=== PATIENT | female | born 1965 | race African-American/Black ===

== ENCOUNTER → 2017-04-11 | Outpatient (CLI) | payer BC ==
[~2017-04-11] MED LIST: ACETAMINOPHEN PO
--- NOTE | ~2017-04-11 | TH ---
Unit #: [id number] #: [id number] Patient: VERENICE FORD [id number] [address] [address] [id number] O MR#: [id number] NAME: VERENICE FORD : 1965 SEX: F STUDY DATE/TIME: 04/11/2017 UNIT: [facility] ROOM: STUDY DESCRIPTION: Attending Physician: Audra Kaye M.D. Referring Physician: Audra Kaye M.D. Primary Care Physician: Tolu Banks Jr., A.P.R.N. CARDIOLOGY REPORT EXAM Nuclear study. DESCRIPTION OF PROCEDURE This 51-year-old patient was exercised on a treadmill. At the peak of exercise, patient was injected with 33.1 mCi of technetium-99m Cardiolite and images were obtained according to a standard SPECT protocol. For rest images, 11.2 mCi of Cardiolite was injected. Images were reviewed in both phases. FINDINGS Overall study quality is excellent. LV cavity size is normal in both images. There is no lung activity. RV is normal. Rotating raw data showed no significant artifact, soft tissue attenuation, or GI uptake. Review of the SPECT images showed normal homogeneous radiotracer concentration throughout the myocardium in both the stress and rest images. Gated images showed normal LV wall thickening and wall motion with an estimated LV ejection fraction of 73%. IMPRESSION 1. Myocardial perfusion imaging is normal. 2. No evidence of ischemia or infarct. 3. Normal left ventricle dimensions. 4. Normal systolic left ventricular function with an estimated left ventricular ejection fraction of 73%. 1. Dictated by... Chris Deal/ramón TD: 04/11/2017 14:46 JOB #: [id number] Unit #: [id number] #: [id number] Patient: VERENICE FORD CARDIOLOGY REPORT Page 1 of 1 X Jose Ramos MD CARDIOLOGY REPORT
--- NOTE | ~2017-04-11 | ST ---
Unit #: [id number] #: [id number] Patient: VERENICE FORD [id number] [address] [address] [id number] O MR#: [id number] NAME: VERENICE FORD : 1965 SEX: F STUDY DATE/TIME: 04/11/2017 UNIT: [facility] ROOM: STUDY DESCRIPTION: Attending Physician: Audra Kaye M.D. Referring Physician: Audra Kaye M.D. Primary Care Physician: Tolu Banks Jr., A.P.R.N. CARDIOLOGY REPORT EXAM Exercise Cardiolite stress test. FINDINGS Baseline EKG: Normal sinus rhythm with ventricular rate 86 beats per minute, Q wave noted in V1, left atrial abnormality, poor R-wave progression, nonspecific ST-T wave abnormalities in inferolateral leads. PROCEDURE Patient walked on the treadmill for five minutes utilizing Prieto protocol, achieving a workload of 4.7 METs. Next, 87% of maximum target heart rate achieved at 146 beats per minute with a maximum blood pressure response of 182/100 mmHg. Next, EKG during the test showed 0.[address] depression in inferolateral leads, nonspecific ST-T wave abnormalities, flattening of ST segment in inferolateral leads. The patient had no complaints of chest pain, palpitations, or dizziness. Had increased shortness of breath and fatigueness which resolved in recovery phase. IMPRESSION 1. Functional class III with a workload of 4.7 METs. 2. Patient walked for five minutes achieving 87% of maximum target heart rate 146 beats per minute with a hypertensive blood pressure response of 182/100 mmHg. 3. It is noted at the end of recovery phase patient's blood pressure decreased down to 136/83 mmHg. 4. Patient had no complaints of chest pain, palpitations, or dizziness. Had increased shortness of breath and fatigueness which resolved in recovery phase. 5. EKG during the test showed a 0.[address] depression in inferolateral leads with flattening of the ST segment. 6. At the end of recovery, EKG returned to normal baseline. 7. Patient had a fairly poor exercise tolerance. 8. Cardiolite was injected at maximum target heart rate. Radionuclide tests pending. Please correlate with nuclear images. Dictated by... Michael PerezR.N. for Loy Escobedo M.D. [facility] [place]/ Unit #: [id number] #: [id number] Patient: VERENICE FORD TD: 04/11/2017 09:24 JOB #: [id number] CARDIOLOGY REPORT Page 1 of 1 X Dionna Smith APRN CARDIOLOGY REPORT
== END | disposition home or self-care (01) ==
LOC: CNUC 07:00
DX: R07.9 Chest pain, unspecified (principal)
CPT/HCPCS: 78452; 93017; A9500